=== PATIENT | female | born 1965 | race Caucasian/White ===

== ENCOUNTER 2025-02-07 11:26 | Emergency (ER) | payer BC, SELFPAY ==
[2025-02-07 11:27] VITALS: BMI 22.1
[2025-02-07 11:34] VITALS: BP 143/90
[2025-02-07 12:08] LABS: % Basophils 0.8 % (0-2); % Eosinophils 1.6 % (0-6); % Immature Granulocytes 0.4 % (0-0.5); % Lymphocytes 24.9 % (20.5-51.1); % Monocytes 9.1 % (1.7-9.3); % Neutrophils 63.2 % (42.2-75.2); Absolute Eosinophils 0.1 10^3/uL (0-0.7); Absolute Lymphocytes 1.2 10^3/uL (1.2-3.4); Absolute Monocytes 0.5 10^3/uL (0.1-0.6); Absolute Neutrophils 3.1 10^3/uL (1.4-6.5); Hematocrit 40.8 % (37.0-47.0); Hemoglobin 14.5 g/dL (12.0-16.0); Mean Corp Hgb Conc. 35.5 g/dL (33.0-37.0); Mean Corpuscular Hgb 30.9 pg (27.0-31.0); Mean Corpuscular Volume 86.8 fL (81.0-99.0); Mean Platelet Volume 8.9 fL (7.4-10.4); Nucleated Red Blood Cells % 0 %; Platelet Count 267 10^3/uL (130-400); Red Cell Dist. Width 11.3 % (11.5-14.5)
[2025-02-07 12:22] LABS: ALT (SGPT) 33 U/L (0-35); AST (SGOT) 32 U/L (14-36); Albumin 5.2 g/dl (3.5-5.0); Alkaline Phosphatase 131 U/L (38-126); Blood Urea Nitrogen 16 mg/dl (7-17); Calcium 10.1 mg/dl (8.4-10.2); Carbon Dioxide 19 mmol/L (22-30); Chloride 99 mmol/L (98-107); Glucose 109 mg/dl (70-99); Potassium 3.9 mmol/L (3.5-5.1); Sodium 133 mmol/L (135-145); Total Bilirubin 1.1 mg/dl (0.2-1.3); Total Protein 7.7 g/dl (6.3-8.2); eGFR 58.24
[2025-02-07 12:49] LABS: TSH Reflex To Free T4 1.92 uIU/ml (0.47-4.68)
--- NOTE | 2025-02-07 13:24 | ED.GENMED ---
History of Present Illness
General
Chief Complaint: Cardiac Symptoms
Time Seen by Provider: 02/07/25 13:11
History of Present Illness
History of Present Illness:
Patient is a 59-year-old woman with history of lupus presenting to the emergency department with palpitations. Patient states that intermittently she has been feeling fluttering in her chest. She went to her primary care doctor and was told that
it was anxiety as she has been having significant amount of stress with her family. Today she was eating breakfast when she developed palpitations or racing heart rate and felt lightheaded dizzy. She felt that she was going to pass out but did
not. This lasted a few minutes and the symptoms resolved. She states now she feels an occasional fluttering in her chest. She has 1 cup of tea in the morning. No recent sicknesses. No alcohol use or drug use. No recent travel malignancy
hemoptysis or history of blood clot. No chest pain or shortness of breath. No known problems with her thyroid. She does state that intermittently she has a shocklike sensation in her lower legs. She is not aware of any vitamin deficiencies. No
family history of arrhythmia problems.
Per medics patient had a normal blood sugar and a normal twelve-lead strip.
Past History
Past History
ED Past Medical History: Other and Other
ED Past Surgical History: None
Social History
Tobacco: Non-smoker
Alcohol: Occasional
Drug: None
Personal:
Living: with family
Employment: Employed
Family History
Family History: Other (No history of CVAs or seizures; reviewed and noncontributory)
Phy Exam
Physical Exam
Physical Exam:
GENERAL: in no acute distress
HEENT: normocephalic, extraocular movements intact, moist oral mucosa
NECK: normal inspection
RESPIRATORY: no respiratory distress, clear to auscultation bilaterally
CARDIOVASCULAR: regular rate and rhythm, 2+ radial pulses bilaterally
ABDOMEN/: soft, non-distended, non-tender to palpation, no rebound or guarding
EXTREMITIES: non-tender, no edema/swelling
NEUROLOGIC: awake and alert, moves all extremities, no gross motor or sensory deficits
SKIN: warm
Course
Orders/Labs/Results
Orders:
Orders
02/07/25 11:27
Electrocardiogram (*1) Urgent
Reason for Study: Palpitations
EKG- Treatment ONCE
02/07/25 11:43
Complete Blood Count/With Diff Urgent
Comprehensive Metabolic Panel Urgent
TSH Reflex To Free T4 Urgent
02/07/25 14:02
Magnesium Urgent
Abnormal Lab Results
02/07/25
11:43
RDW 11.3 L %
(11.5-14.5)
Sodium 133 L mmol/L
(135-145)
Carbon Dioxide 19 L mmol/L
(22-30)
Creatinine 1.1 H mg/dL
(0.6-1.0)
Glucose 109 H mg/dl
(70-99)
Alkaline Phosphatase 131 H U/L
(38-126)
Albumin 5.2 H g/dl
(3.5-5.0)
02/07/25 11:43
02/07/25 11:43
Vital Signs
Initial and Last Documented VS:
Initial Vital Signs
Temp Pulse Resp BP Pulse Ox
97.5 F 91 18 143/90 100
02/07/25 11:34 02/07/25 11:34 02/07/25 11:34 02/07/25 11:34 02/07/25 11:34
Last Documented Vital Signs
Temp Pulse Resp BP Pulse Ox
98.7 F 80 15 143/90 98
02/07/25 13:50 02/07/25 13:48 02/07/25 13:48 02/07/25 11:34 02/07/25 14:26
MDM/Problems Addressed
Differential Diagnosis Includes:
Patient is a 59-year-old woman with history of lupus presenting to the emergency department with palpitations and a fast heart rate that have since resolved. Vitals unremarkable and exam is reassuring. Differential consists of metabolic
derangement versus thyroid abnormality versus arrhythmia. Will check blood work including thyroid and magnesium. EKG per my interpretation normal sinus rhythm.
*Critical Care Note
Total Time (30-74mins, 75-104mins- exclusive of procedures): Not Applicable
Update Note
Update Note:
On reevaluation patient is resting comfortably. On the monitor patient did have 1 PVC. She denies any recurrent palpitations or fast heart rate but states that she did notice the flutter. Blood work is unremarkable. Will discharge patient at
this time with PCP cardiology follow-up for outpatient Holter monitoring.
ED Attending Note
-
Portions of this chart may have been created with voice recognition software.� Occasional wrong word or��sound alike� substitutions may have occurred due to the inherent limitations of voice recognition software.
Discharge Plan
Departure
Patient Disposition: Home (Routine Discharge)
Date of Disposition: 02/07/25
Time of Disposition: 14:41
Patient with high blood pressure during this ER visit?: No
Discharge Problem:
Heart palpitations, Premature ventricular contractions (PVCs) (VPCs)
Instructions: Palpitations - ED discharge instructions
Prescriptions:
No Action
Rest+Restor (Mg,L-Sianine,Mahi
1 tab PO HSPRN PRN (Reason: sleep)
prednisone 10 MG tablet
10 mg PO .TAPER Qty: 30 0RF
Rx Instructions:
Take 40mg daily x3days, 30mg daily x3days,
20mg daily x3days, 10mg daily x3days.
Referrals:
Layla Orellana MD [Family Provider] -
Activity Restrictions/Additional Instructions:
You have been evaluated in the Emergency Department today for palpitations your evaluation did not show evidence of medical conditions requiring emergent intervention at this time, however we recommend you follow up with your primary care provider
for further testing as an outpatient. You will likely need a Holter monitor.
Please follow up with your primary care doctor in 2-3 days.
Return to the ER immediately for worsening or uncontrolled symptoms, headache, chest pain, shortness of breath, persistent vomiting, vision changes, fainting, or for any other concerning symptoms.
Thank you for choosing us for your care.
Interventions
Interventions:
*Risk Screen - Suicide Last Done: 02/07/25 11:34
*General Assessment Last Done: 02/07/25 11:34
*Neglect/Abuse Screening Last Done: 02/07/25 11:34
*ED COVID-19 Vaccine History Last Done: 02/07/25 11:34
ED- Pulmonary Assessment Last Done: 02/07/25 14:26
ED- Cardiac Assessment Last Done: 02/07/25 14:26
Discharge Date and Time
Print Language: POLISH
[2025-02-07 14:21] LABS: Magnesium 1.9 mg/dl (1.6-2.3)
== END 2025-02-07 14:59 | disposition home or self-care (01) ==
LOC: EMR 11:26
PROVIDERS: Emergency Medicine; EMERGENCY PHYSICIAN Student in an Organized Health Care Education/Training Program; FAMILY PHYSICIAN Internal Medicine
DX: R00.2 Palpitations (principal); I49.3 Ventricular premature depolarization; M32.9 Systemic lupus erythematosus, unspecified; F41.9 Anxiety disorder, unspecified
CPT/HCPCS: 99283; 80053; 83735; 84443; 85025; 93005